=== PATIENT | female | born 1955 | race Caucasian/White ===

== ENCOUNTER 2020-08-08 20:59 | Emergency (ER) | payer BC, SELFPAY ==
--- NOTE | 2020-08-08 21:01 | EKG12_ITS ---
Test Reason : STROKE Blood Pressure : / mmHG Vent. Rate : 059 BPM Atrial Rate : 059 BPM P-R Int : 166 ms QRS Dur : 074 ms QT Int : 458 ms P-R-T Axes : 053 027 058 degrees QTc Int : 453 ms Sinus bradycardia with Premature atrial complexes Possible Left atrial enlargement Borderline ECG Confirmed by JENNIFER TELLEZ, ZI ([id number]), news editor MANUEL HOWE ([id number]) on 08/12/2020 12:41:57 PM Referred By: KATARINA Confirmed By:ZI RODRIGUEZ MD
--- NOTE | 2020-08-08 21:01 | CT_ITS ---
EXAMINATION : Head CT w/out contrast HISTORY : Neuro deficit, acute, stroke suspected COMPARISON : None. TECHNIQUE : Multiple contiguous axial images were obtained from the skull base to the vertex without intravenous contrast. A radiation dose optimization technique was used for this scan. FINDINGS : The ventricles and sulci are normal in size. There is no evidence for acute intracranial hemorrhage, mass effect, or midline shift. There is no extra-axial fluid collection. There is normal lopez-white differentiation, without CT evidence of acute ischemia or infarct. The skull base and calvarium are unremarkable. The orbits are unremarkable. The paranasal sinuses are clear. The mastoid air cells are well-aerated. The soft tissues are unremarkable. CT/STROKE Brain/Head without Cont IMPRESSION: No acute intracranial abnormality. N.B. : The above information has been verbally conveyed by Ricardo Solano MD to Dario Patel MD, , on 08/08/2020 21:19:01 (ET). Electronically Signed: Ricardo Solano MD at 21:19 EDT Tel , Service support ,
--- NOTE | 2020-08-08 21:01 | CT_ITS ---
STUDY: CTA HEAD AND NECK WITH CONTRAST REASON FOR EXAM: Female, 65 years old. Neuro deficit, acute, stroke suspected RADIATION DOSAGE (If Supplied By Facility): CTDIvol = ( 24.655 ) mGy, DLP = ( 646.93 ) mGycm TECHNIQUE: CT angiography was performed with a multi-detector CT scanner. Data acquisition was obtained from the skull base through the vertex following intravenous administration of IV 100mL Isovue-[id number]. MIP images were reconstructed from the axial data set. Post-processing of the angiographic images was performed, with multiplanar reformation and 3D reconstruction. Individualized dose optimization techniques were used for this CT. COMPARISON: No relevant priors. FINDINGS: Normal bilateral petrous carotid arteries. Normal right cavernous carotid artery with a normal supraclinoid bifurcation. Normal left cavernous carotid artery with a normal supraclinoid bifurcation. Normal right A1 segments of the anterior cerebral artery. Normal left A1 segments of the anterior cerebral artery. Normal intact anterior communicating artery (ACOM). Normal A2 segment of the right anterior cerebral artery Tiny calcific plaquing of the the A2 segment of the left anterior cerebral artery. Normal right M1 and M2 segments of the middle cerebral arteries, with a normal M1 bifurcation. There is occluding clot within the left M1 segment of the middle cerebral arteries, with a normal M1 bifurcation. Reconstituted M2 segment Normal right posterior communicating artery (PCOM). Normal left posterior communicating artery (PCOM). Normal bilateral vertebral arteries. Normal basilar artery with a normal basilar bifurcation. The visualized bilateral superior cerebellar (SCA) arteries are normal. Normal bilateral P1, P2 and visualized P3 segments of the posterior cerebral arteries. There is no demonstrated aneurysm of the [place]. There is no demonstrated abnormality of the visualized brain. AORTIC ARCH: Normal visualized aortic arch. Normal origins of the brachiocephalic, left common carotid, and left subclavian arteries. RIGHT CAROTID ARTERIES: Normal right common carotid artery (CCA). Normal right common carotid bulb. Normal origin of the right internal carotid (ICA) artery without a hemodynamically significant stenosis. Normal visualized cervical portion of the right internal carotid artery. Normal origin of the right external carotid artery (ECA). LEFT CAROTID ARTERIES: Normal left common carotid artery (CCA). Normal left common carotid bulb. Normal origin of the left internal carotid (ICA) artery without a hemodynamically significant stenosis. Normal visualized cervical portion of the left internal carotid artery. Normal origin of the left external carotid artery (ECA). VERTEBRAL ARTERIES: Normal bilateral vertebral arteries. CT/STROKE CTA Head AND Neck W/Con IMPRESSION: Occluding clot within the M1 segment of left middle cerebral artery with reconstituted M2 segment No significant atherosclerotic disease of the cervical carotids N.B. : The above information has been verbally conveyed by Duc Berry MD to - Dario Patel MD , , on 08/08/2020 21:25:20 (ET). Electronically Signed: Duc Berry MD at 21:31 EDT , Service support ,
--- NOTE | 2020-08-08 21:03 | ED.VIS.STROK ---
HPI History of Present Illness Chief Complaint: Neuro S/Sx Informant: patient and EMS Onset/Context/Timing Onset: Today Context: Sudden Onset Timing: Continuous Quality and Location: Positive for Right Facial Droop, Right Arm Parasthesia, Right Arm Weakness and Slurred Speech Current Severity: Moderate Maximum Severity: Moderate Associated Symptoms Associated Symptoms: Negative for Headache, Nausea and Vomiting Narrative Narrative: The patient is a 65-year-old female with medical history significant for atrial fibrillation who is not on anticoagulation who presents to the emergency department with sudden onset right-sided facial droop and right arm weakness. The patient states that her symptoms began at about 4 PM today. She had difficulty getting her words out. She also noticed that she was slurring her speech. She states that her right arm was also feeling weak. Squad was called at about 830. Stroke team was activated prehospital he. On arrival, the patient is awake and alert. She does have obvious right-sided deficits. Prior similar symptoms: No Recent Illness/Hospitalization: No PFSH PFSH Home Medications metoprolol tartrate 12.5 mg PO DAILY 02/14/13 [History Last Taken 02/14/13] Allergy/AdvReac Type Severity Reaction Status Date / Time No Known Allergies Allergy Verified 02/14/13 13:02 no surgical history Social History Smoking Status: Never smoker ROS ROS ED Constitutional Constitutional ED: Denies chills or fever(s) Eyes Eyes: Denies blurry vision or change in vision ENT ENT ED: Denies ear pain or sore throat Cardiovascular Cardiovascular: Denies chest pain or palpitations Respiratory/Chest Respiratory/Chest: Denies cough, dyspnea or dyspnea on exertion Gastrointestinal Gastrointestinal: Denies abdominal pain, nausea or vomiting Genitourinary Genitourinary ED: Denies dysuria or urinary frequency Musculoskeletal Musculoskeletal: Denies arthralgias or myalgias Integumentary Denies rash Neurologic Neurologic: Reports weakness; Denies headache(s) or paresthesias Psychiatric Psychiatric: Denies anxiety or depression Endocrine Endocrinology: Denies polydipsia or polyuria Allergic/Immunologic Allergic/Immunologic ED: Denies urticaria EXAM Physical Exam Const Vital Signs: 08/08/20 21:10 08/08/20 21:13 08/08/20 21:20 Temperature 98.6 F 98.6 F Temperature Source Oral Oral Pulse Rate 57 L 57 L Respiratory Rate 16 19 H Blood Pressure 165/105 H 160/73 H Blood Pressure Mean 125 102 Pulse Ox 100 98 Oxygen Delivery Method Room Air Room Air Room Air Positive well nourished and well developed General Appearance ED: well developed HEENT Reports normocephalic, head/scalp atraumatic and moist mucous membranes Eyes PERRL and EOMs intact bilaterally Neck no lymphadenopathy and supple General: Negative for tenderness Chest Wall inspection of chest normal Resp normal respiratory effort and clear to auscultation bilaterally Cardio regular rate, regular rhythm and no murmurs GI normal to inspection, nondistended, normoactive bowel sounds Palpation: Negative for tender, guarding or rebound tenderness present Back/Spine no CVA tenderness Cervical Spine: Negative for cervical spine tenderness Thoracic Spine / Upper Back: Negative for thoracic spinal tenderness Extremity normal to inspection General Extremety ED: Negative for tenderness Neuro oriented x3 Neuro Narrative: No focal deficits appreciated. Patient has right-sided facial droop, dysarthria, and mild right arm weakness. There is also right arm sensory deficit. Sensorium / Orientation: alert, oriented to place, oriented to time and orientation impaired Psych mental status grossly normal Skin no rashes or lesions noted, no wounds and skin turgor normal STROKE Vital Signs/Narrative: Vital Signs Temp Pulse Resp BP Pulse Ox 08/08/20 21:20 98.6 F 57 L 19 H 160/73 H 98 08/08/20 21:13 98.6 F 57 L 16 165/105 H 100 NIHSS Initial: 1a Level of Consciousness: 0 1b LOC Questions (Score 2 if aphasic/stupor): 0 1c LOC Commands (Only score 1st attempt): 0 2 Best Gaze (If aphasic, use reflexive mvmts.): 0 3 Visual: 0 4 Facial Palsy: 2 5 Motor Arm Right (UN = amputation/fusion): 1 5 Motor Arm Left: 0 6 Motor Leg Right: 0 6 Motor Leg Left: 0 7 Limb ataxia (Only + if out of proportion): 1 8 Sensory (Aphasia/stupor=0 or 1, coma=2): 1 9 Best Language: 1 10 Dysarthria (mute, coma=2, intubated=UN): 2 11 Extinction and Inattention (only scored if +): 1 Total Score: 9 MDM MDM MDM Narrative Medical decision making narrative: Patient presents with stroke like symptoms. I was concerned for a large vessel given her right facial, expressive aphasia, dysarthria, and right arm weakness. She was sent for CT which was unremarkable. We did obtain CTA at the same time as she was outside the window for TPA. This does show M1 occlusion. The patient was evaluated in conjunction with [facility] neurology, Dr. Reena Raza. He did recommend transfer as level 1 priority for potential retrieval. The patient is agreeable with this and will be transferred immediately to [facility]. Unfortunately, due to weather, there is no helicopter transfer. She will be transferred by ground. Impression 1. Acute ischemic stroke Lab Data Attestation: I reviewed the patient's lab results. Labs: Laboratory Results - last 24 hr 08/08/20 21:25 WBC 6.7 RBC 4.00 L Hgb 11.9 L Hct 36.0 L MCV 90.0 MCH 29.8 MCHC 33.1 RDW Std Deviation 40.0 RDW Coeff of Vin 12.1 Plt Count 216 MPV 10.2 Immature Gran % (Auto) 0.100 Neut % (Auto) 55.9 Lymph % (Auto) 26.2 [place] % (Auto) 8.3 Eos % (Auto) 8.8 H Baso % (Auto) 0.7 Absolute Neuts (auto) 3.8 Absolute Lymphs (auto) 1.76 Nucleated RBC % 0 Radiography Diagnostic Testing: Radiology Impression Brain CT 08/08/20 21:01 IMPRESSION: No acute intracranial abnormality. N.B. : The above information has been verbally conveyed by Ricardo Solano MD to Dario Patel MD, , on 08/08/2020 21:19:01 (ET). Electronically Signed: Ricardo Solano MD at 21:19 EDT Tel , Service support , ADDENDUM: 08/08/202125 IMPRESSION: No acute intracranial abnormality. N.B. : The above information has been verbally conveyed by Ricardo Solano MD to Dario Patel MD, MD, on 08/08/2020 21:19:01 (ET). Electronically Signed: Ricardo Solano MD at 21:19 EDT Tel , Service support , Head/Neck CTA 08/08/20 21:01 IMPRESSION: Occluding clot within the M1 segment of left middle cerebral artery with reconstituted M2 segment No significant atherosclerotic disease of the cervical carotids N.B. : The above information has been verbally conveyed by Duc Berry MD to - Dario Patel MD , , on 08/08/2020 21:25:20 (ET). Electronically Signed: Duc Berry MD at 21:31 EDT , Service support , Critical Care Time Critical Care Time: Yes Critical care time (excluding procedures): 30-74 minutes, Including time spent:, Discussing w/Patient &/or Family/[employer]or, Discussing w/Consultants, Arranging Admission or Transfer and Performing Direct Patient Care at Bedside Discharge Plan Triage Chief Complaint: Neuro S/Sx ED Provider: Dario Patel Dx/Rx/DC Orders Prescriptions: No Action metoprolol tartrate 25 MG tablet 12.5 mg PO DAILY RF: 0 Primary Care Provider: Ger Nuñez
--- NOTE | 2020-08-08 21:05 | ED.RN ---
[facility]u called at this time for stroke alert
[2020-08-08 21:09] VITALS: BMI 26.6
--- NOTE | 2020-08-08 21:11 | ED.RN ---
osu called back for patient in room at this time
[2020-08-08 21:13] VITALS: BP 165/105; PULSE 57; RESP 16; TEMP 37; O2SAT 100
[2020-08-08 21:20] VITALS: BP 160/73; PULSE 57; RESP 19; TEMP 37; O2SAT 98; BMI 26.6
--- NOTE | 2020-08-08 21:26 | ED.RN ---
[facility] called for transport. denied due to weather
[2020-08-08 21:31] VITALS: BP 158/73; PULSE 57; RESP 15; O2SAT 97
[2020-08-08 21:31] LABS: Absolute Lymphocyte Count 1.76 X10^3/uL (0.83-4.51); Absolute Neutrophil Count 3.8 X10^3/uL (2.0-7.7); Basophil# 0.05 X10^3/uL; Basophil% 0.7 % (0-1); Eosinophil# 0.59 X10^3/uL; Eosinophils% 8.8 % (0-5); Hemoglobin 11.9 g/dL (12.0-15.0); Lymphocyte # 1.76 X10^3/ul (0.83-4.51); Lymphocyte % 26.2 % (19-41); Mean Corp Hgb Conc 33.1 g/dL (32-36); Mean Corpuscular Hgb 29.8 pg (27.0-32.0); Mean Platelet Vol. 10.2 fl (6.2-12.0); Monocyte# 0.56 X10^3/uL; Monocyte% 8.3 % (0-10); NRBC Flagged by Analyzer 0 % (0-5); Neutrophil # 3.75 X10^3/uL (2.7-7.7); Neutrophil % 55.9 % (47-70); Platelet Count 216 K/mm3 (150-450); RBC Distribution Width CV 12.1 % (11.6-14.6); White Blood Count 6.7 K/mm3 (4.4-11.0)
--- NOTE | 2020-08-08 21:35 | ED.RN ---
deborah phone number [phone]
[2020-08-08 21:37] VITALS: BP 158/73; PULSE 52; RESP 20; O2SAT 98
[2020-08-08 21:39] LABS: International Normalized Ratio 1.1; Prothrombin Time (Protime)PT. 13.1 SECONDS (11.7-14.9)
[2020-08-08 21:40] LABS: Partial Thromboplast Time 26.9 Seconds (24.1-36.2)
[2020-08-08 21:50] LABS: Anion Gap 6 (5-15); BUN 19 mg/dL (7-18); Calcium,Total 8.9 mg/dL (8.5-10.1); Chloride 105 mmol/L (98-107); Creatinine, Serum 0.79 mg/dL (0.55-1.02); EST Glomerular Filtration Rate 77 mL/min (>60); Est Glom Filt Rate - Afr Amer 94 mL/min (>60); Estimated Creatinine Clearance 69.04 ml/min; Glucose 103 mg/dL (74-106); Sodium Level 139 mmol/L (136-145)
== END 2020-08-08 22:00 | disposition other institution (70) ==
LOC: ED 21:05
PROVIDERS: Emergency Provider Emergency Medicine; PCP Internal Medicine
DX: I63.9 Cerebral infarction, unspecified (principal); R47.01 Aphasia; G83.21 Monoplegia of upper limb affecting right dominant side; R29.810 Facial weakness; R29.709 NIHSS score 9; I48.91 Unspecified atrial fibrillation
CPT/HCPCS: 70450; 70496; 70498; 80048; 84484; 85025; 85610; 85730; 93005; 99285; Q9967